=== PATIENT | female | born 1955 | race Caucasian/White ===

== ENCOUNTER → 2016-09-17 | Outpatient (CLI) | payer BC | END | disposition home or self-care (01) | LOC: CFH 14:30 | PROVIDERS: ATTEND Obstetrics & Gynecology Gynecology | DX: Z12.31 Encounter for screening mammogram for malignant neoplasm of breast (principal) | CPT/HCPCS: G0202 ==

== ENCOUNTER → 2017-05-11 | Outpatient (CLI) | payer BC | END | disposition home or self-care (01) | LOC: CFH 13:02 | PROVIDERS: ATTEND Obstetrics & Gynecology Gynecology | DX: N63.21 Unspecified lump in the left breast, upper outer quadrant (principal) | CPT/HCPCS: 77065 ==

== ENCOUNTER → 2017-07-05 | Outpatient (CLI) | payer BC ==
[~2017-07-05] MED LIST: ACET-1600 PO; PYRI100T2 PO
== END | disposition home or self-care (01) ==
LOC: STAR 14:26
PROVIDERS: ATTEND Surgery
DX: Z01.818 Encounter for other preprocedural examination (principal)
CPT/HCPCS: 93005

== ENCOUNTER 2017-07-18 09:36 | Day surgery (SDC) | payer BC ==
[2017-07-05 14:58] VITALS: BP 130/81
[~2017-07-18] VITALS: Ht 165.1 cm; Wt 66.0 kg
[~2017-07-18 09:36] MED LIST changes: +BUPIVACAINE/PF 0.25% ONE
[2017-07-18] MEDS ORDERED: LACTATED RINGERS 1,000 ML IV SCH (10:03)
[2017-07-18] MEDS ORDERED: ISOSULFAN BLUE 10 MG/ML, 5ML IV ONE (10:16)
[2017-07-18] MEDS ORDERED: FENTANYL PF 250 MCG/5ML ONE (10:28)
[2017-07-18] MEDS ORDERED: MIDAZOLAM 1 MG/ML, 2ML ONE (10:28)
[2017-07-18] MEDS ORDERED: LIDOCAINE-MPF 1%, 2ML INFIL ONE (10:30)
[2017-07-18] MEDS ORDERED: LIDOCAINE-MPF 1%, 2ML ONE (10:36)
[2017-07-18] MEDS ORDERED: ONDANSETRON ODT 8 MG ONE (10:58)
[2017-07-18] MEDS ORDERED: SCOPOLAMINE PATCH, 1.5MG PATCH.TD72 TD ONE ×2 (10:58→11:00)
[2017-07-18] MEDS ORDERED: OxyconTIN ER 10 MG TAB.ER ONE (10:58)
[2017-07-18] MEDS ORDERED: GABAPENTIN 300 MG CAPSULE ONE (10:58)
[2017-07-18] MEDS ORDERED: ACETAMINOPHEN 500 MG TABLET ONE (10:59)
[2017-07-18] MEDS ORDERED: ONDANSETRON ODT 8 MG PO ONE (11:00)
[2017-07-18] MEDS ORDERED: GABAPENTIN 300 MG CAPSULE PO ONE (11:00)
[2017-07-18] MEDS ORDERED: OxyconTIN ER 10 MG TAB.ER PO ONE (11:00)
[2017-07-18] MEDS ORDERED: ACETAMINOPHEN 500 MG TABLET PO ONE (11:00)
[2017-07-18] MEDS ORDERED: ROCURONIUM 10MG/ML,5ML ONE (11:27)
[2017-07-18] MEDS ORDERED: SUCCINYLCHOLINE 20 MG/ML, 10ML ONE (11:27)
[2017-07-18] MEDS ORDERED: DEXAMETHASONE 4 MG/ML, 1ML ONE (11:27)
[2017-07-18] MEDS ORDERED: PROPOFOL 10 MG/ML, 20ML ONE (11:27)
[2017-07-18] MEDS ORDERED: CEFAZOLIN 1,000 MG ONE (11:27)
[2017-07-18] MEDS ORDERED: ALBUTEROL SULFATE 2.5 MG/3 ML NPPB PRN (13:00)
[2017-07-18] MEDS ORDERED: OXYcodone 5 MG/5 ML ORAL.SOL UDC PO PRN (13:00)
[2017-07-18] MEDS ORDERED: MEPERIDINE/PF 25MG/0.5ML IVPush PRN (13:00)
[2017-07-18] MEDS ORDERED: ONDANSETRON ODT 8 MG PO PRN (13:00)
[2017-07-18] MEDS ORDERED: hydrALAzine 20 MG/ML, 1ML IV PRN (13:00)
[2017-07-18] MEDS ORDERED: PROMETHAZINE 12.5 MG SUPP PR PRN (13:00)
[2017-07-18] MEDS ORDERED: PROMETHAZINE 25 MG/ML, 1ML IV PRN (13:00)
[2017-07-18] MEDS ORDERED: MIDAZOLAM 1 MG/ML, 2ML IV PRN (13:00)
[2017-07-18] MEDS ORDERED: FENTANYL PF 100 MCG/2ML IV PRN (13:00)
[2017-07-18] MEDS ORDERED: LABETALOL 5MG/ML, 20ML IV PRN (13:00)
[2017-07-18] MEDS ORDERED: MORPHINE SULFATE 4 MG/ML, 1ML IVPush PRN (13:00)
[2017-07-18] MEDS ORDERED: FENTANYL PF 100 MCG/2ML ONE (13:41)
== END 2017-07-18 17:10 ==
LOC: OUT 09:36 → EDSTATUS 13:00 → OUT 17:10
PROVIDERS: ATTEND Surgery
DX: C50.412 Malignant neoplasm of upper-outer quadrant of left female breast (principal); Z72.89 Other problems related to lifestyle; Z88.1 Allergy status to other antibiotic agents; Z88.8 Allergy status to other drugs, medicaments and biological substances
CPT/HCPCS: 19301; 38525; 38792; 88305; 88307; 88333; A9541; C1729; C1762; C9898; J0330; J0690; J1100; J2250; J2704; J3010; J3490; J7120; Q0162; C1789

== ENCOUNTER 2018-05-02 12:19 | Outpatient (CLI) | payer BC ==
[~2018-05-02 12:19] MED LIST changes: -BUPIVACAINE/PF 0.25% ONE
== END 2018-05-02 23:59 | disposition home or self-care (01) ==
LOC: CFH 12:19
PROVIDERS: ATTEND Internal Medicine Hematology & Oncology
DX: R92.8 Other abnormal and inconclusive findings on diagnostic imaging of breast (principal); Z85.3 Personal history of malignant neoplasm of breast
CPT/HCPCS: 77065; G0279

== ENCOUNTER 2018-09-13 09:59 | Outpatient (CLI) | payer BC | END 2018-09-13 23:59 | disposition home or self-care (01) | LOC: CFH 09:59 | PROVIDERS: ATTEND Internal Medicine Hematology & Oncology | DX: M85.89 Other specified disorders of bone density and structure, multiple sites (principal); C50.412 Malignant neoplasm of upper-outer quadrant of left female breast | CPT/HCPCS: 77080 ==

== ENCOUNTER → 2020-09-15 | Outpatient (CLI) | payer MEDICARE ==
[~2020-09-15] MED LIST changes: -PYRI100T2 PO; +PYRI100T9 PO
== END | disposition home or self-care (01) ==
LOC: CFH 10:15
PROVIDERS: ATTEND Internal Medicine Hematology & Oncology
DX: C50.412 Malignant neoplasm of upper-outer quadrant of left female breast (principal); M85.89 Other specified disorders of bone density and structure, multiple sites
CPT/HCPCS: 77080